=== PATIENT | female | born 1980 | race Caucasian/White ===

== ENCOUNTER 2019-10-05 10:52 | Outpatient (CLI) | payer OTHER, SELFPAY ==
--- NOTE | ~2019-10-05 | XR_ITS ---
EXAMINATION: XR chest 2V DATE: 10/05/2019 11:14 INDICATION: Cough, fever, shortness of breath TECHNIQUE: Frontal and lateral views of the chest are obtained COMPARISON: 02/27/2007 FINDINGS: The lungs are free of acute opacities. There is no pleural effusion or pneumothorax. The ca rdiomediastinal silhouette is normal. The visualized bones and soft tissues are unremarkable. IMPRESSION: 1. No acute cardiopulmonary abnormality. Reviewed, dictated and finalized at location B.
== END 2019-10-05 10:53 | disposition home or self-care (01) ==
PROVIDERS: PCP Internal Medicine; Visit Provider Internal Medicine
DX: R05 Cough (principal)
CPT/HCPCS: 71046

== ENCOUNTER 2019-12-26 16:18 | Emergency (ER) | payer OTHER, SELFPAY ==
--- NOTE | ~2019-12-26 | CT_ITS ---
EXAMINATION: CT abdomen pelvis w con INDICATION: Bilateral abdominal pain, right greater than left TECHNIQUE: Computed tomographic images of the abdomen and pelvis were obtained after the administrati on of 100 cc of Omnipaque 350 intravenous contrast. The dose-length product (DLP) was 1212.43 mGy-cm. Automated exposure control and iterative reconstruction technique were employed. COMPARISON: None available FINDINGS: The lung bases are clear. The heart size is normal. There is focal fatty infiltration of th e liver near the ligamentum teres. The spleen, pancreas, gallbladder, and adrenal glands are normal. The kidneys are unremarkable. No pathologically enlarged abdominal or pelvic lymph nodes are identifi ed. There is no free intraperitoneal gas or evidence of bowel obstruction. There is mild wall thicken ing and inflammatory change involving the ascending and proximal transverse colon. The appendix is no rmal. There are changes of anterior and posterior fusion procedures from L4 through S1. IMPRESSION: 1. Mild colitis involving the ascending and proximal transverse colon. Reviewed, dictated and finalized at location A.
[2019-12-26 16:20] VITALS: BP 111/66; PULSE 102; RESP 20; TEMP 36.7; O2SAT 100
[2019-12-26] MEDS: ONDANSETRON INJ 4 MG/2 ML VIAL IV PUSH (17:05)
[2019-12-26] MEDS: SODIUM CHLORIDE 0.9% IV 1,000 ML 999 ML IV CONT (17:05)
[2019-12-26] MEDS: MORPHINE SULFATE 4 MG/ML INJ IV PUSH (17:05)
[2019-12-26 17:11] LABS: Basophils Percent Auto 0.2 % (0.2-1.2); Eosinophils Absolute Auto 0.1 K/mm3 (0-0.3); Eosinophils Percent Auto 0.5 % (0-4.4); Hematocrit 35.2 % (37.0-47.0); Hemoglobin 10.5 g/dL (12.0-15.0); Immature Granulocyte Absolute 0.03 K/mm3 (0.00-0.031); Immature Granulocyte Percent A 0.3 % (0-0.5); Lymphocytes Absolute Auto 1.26 K/mm3 (0.9-3.2); Lymphocytes Percent Auto 13.6 % (18.3-44.2); Mean Corpuscular HGB Conc 29.8 g/dl (32-36); Mean Corpuscular Hemoglobin 21.7 pg (26-34); Mean Corpuscular Volume 72.9 fl (80-100); Mean Platelet Volume 9.5 fl (7.4-10.4); Monocytes Absolute Auto 0.5 K/mm3 (0.1-0.6); Monocytes Percent Auto 5.2 % (2.6-8.5); Neutrophils Absolute Auto 7.4 K/mm3 (1.3-6.7); Neutrophils Percent Auto 80.2 % (45.5-73.1); Platelet Count Result 293 k/mm3 (150-375); Red Blood Count 4.83 M/mm3 (4.2-5.4); Red Cell Distribution Width 17.5 % (11.5-14.5); White Blood Count 9.3 K/mm3 (4.5-10.0)
[2019-12-26 17:15] LABS: Add Urine Microscopic? YES; Appearance Urine Clear (Clear); Bilirubin Urine Negative (Negative); Blood Urine 2+ (Negative); Color Urine Yellow (Yellow); Glucose Urine UA Negative (Negative); Ketones Urine 1+ mg/dL (Negative); Leukocyte Esterase Ur Negative LEU/UL (Negative); Mucus Urine Heavy /lpf; Nitrate Urine Negative (Negative); Protein Urine 1+ mg/dL (Negative); Specific Grav Ur 1.023 (1.001-1.035); Squamous Epithelial Cell Urine Few /hpf (Few); Urobilinogen Urine Negative mg/dL (<2.0); WBC Urine 0-3 /hpf
[2019-12-26 17:21] LABS: Alanine Aminotransferase 22 U/L (4-35); Albumin Level 4.6 g/dL (3.5-5.1); Alkaline Phosphatase 79 U/L (38-126); Aspartate Amino Transferase 30 U/L (14-36); Bilirubin,Total 0.6 mg/dL (0.2-1.3); Blood Urea Nitrogen 5 mg/dL (7-17); Calcium 8.9 mg/dL (8.4-10.2); Carbon Dioxide 27 mmol/L (22-30); Chloride 97 mmol/L (98-107); Estimated CRCL calculation 89 ml/min; Estimated Glomerular Filt Rate > 60; Glucose 122 mg/dL (65-105); Lipase 49 U/L (23-300); Potassium 3.3 mmol/L (3.4-5.0); Sodium 133 mmol/L (137-145)
[2019-12-26 17:26] LABS: Anisocytosis 2+ (NORMAL); Hypochromasia 1+ (NORMAL); Platelet Estimate Adequate (Adequate)
--- NOTE | 2019-12-26 17:50 | ED.GENADULT ---
HPI - General Adult General Chief complaint: Abdominal Pain Stated complaint: rlq pain, sent from md office Time Seen by Provider: 12/26/19 16:31 History of Present Illness HPI narrative: Patient is a 39-year-old female who presents the ER with abdominal pain. Right-sided ongoing for last 2 days. Associated with diarrhea. Nonbloody. Diffuse abdominal cramping. No fevers or chills or sweats. Mild nausea and occasional vomiting. Reports approximately 6 episodes of diarrhea today. and child had some loose stools last couple days. Related Data Home Medications Medication Instructions Recorded Confirmed amoxicillin-pot clavulanate tablet 12/26/19 fluticasone propion-salmeterol INHALATION 12/26/19 [Advair Diskus] levothyroxine 12/26/19 Allergies Allergy/AdvReac Type Severity Reaction Status Date / Time Quinolones Allergy Severe ANAPHYLACTIC Verified 12/26/19 17:03 SHOCK LEVAQUIN Allergy Severe ANAPHYLACTIC Uncoded 12/26/19 17:03 SHOCK Review of Systems Review of Systems: All systems reviewed & are unremarkable except as noted in HPI and below Constitutional: Constitutional: Denies chills, Denies fever(s) and Denies weakness ENT: Denies nasal congestion and Denies sore throat Gastrointestinal: Gastrointestinal: Reports abdominal pain, Reports diarrhea, Reports nausea and Reports vomiting Genitourinary: Genitourinary: Denies nocturia, Denies dysuria and Denies flank pain PMFSH Past Medical History Medical History (Updated 12/26/19 @ 18:23 by Ko Amezcua MD) Hypothyroidism Surgical History Surgical History (Updated 12/26/19 @ 17:53 by Ko Amezcua MD) Fusion of lumbar spine Family History Family History (Updated 12/26/19 @ 17:54 by Ko Amezcua MD) Unknown Adopted Social History Social History (Updated 12/26/19 @ 17:54 by Ko Amezcua MD) Social History: Non-smoker Exam Narrative: Exam Narrative: GENERAL: Well-appearing, well-nourished, and in no acute distress. HEAD: Normocephalic, atraumatic. ENT: Mucous membranes moist. CHEST: Clear to auscultation. No respiratory distress. HEART: Regular rate and rhythm. Normal peripheral pulses. ABDOMEN: Soft, tender in bilateral lower quadrants right greater than left without guarding, mild epigastric discomfort, nondistended, normal active bowel sounds. EXTREMITIES: Normal range of motion. No edema. NEURO: Alert and oriented x3. PSYCH: Normal mood and affect. Course Course Emergency Course: Patient informed of results. Reports PCP called in some amoxicillin for her. She may fill that we will add on Flagyl. She also received Bentyl and Zofran for home. Vital Signs Vital signs: Vital Signs Temperature 98.1 F 12/26/19 16:20 Pulse Rate 102 H 12/26/19 16:20 Respiratory Rate 20 12/26/19 16:20 Blood Pressure 111/66 12/26/19 16:20 Pulse Oximetry 100 12/26/19 16:20 Temperature 98.1 F 12/26/19 16:20 Pulse Rate 102 H 12/26/19 16:20 Respiratory Rate 20 12/26/19 16:20 Blood Pressure 111/66 12/26/19 16:20 Pulse Oximetry 100 12/26/19 16:20 Medical Decision Making Vital Signs Vital Signs: Vital Signs Temperature 98.1 F 12/26/19 16:20 Pulse Rate 102 H 12/26/19 16:20 Respiratory Rate 20 12/26/19 16:20 Blood Pressure 111/66 12/26/19 16:20 Pulse Oximetry 100 12/26/19 16:20 Temperature 98.1 F 12/26/19 16:20 Pulse Rate 102 H 12/26/19 16:20 Respiratory Rate 20 12/26/19 16:20 Blood Pressure 111/66 12/26/19 16:20 Pulse Oximetry 100 12/26/19 16:20 Lab Data Result diagrams: 12/26/19 17:05 12/26/19 17:05 Labs: Lab Results 12/26/19 12/26/19 12/26/19 Range/Units 17:05 17:05 17:05 WBC 9.3 (4.5-10.0) K/mm3 RBC 4.83 (4.2-5.4) M/mm3 Hgb 10.5 L (12.0-15.0) g/dL Hct 35.2 L (37.0-47.0) % MCV 72.9 L (80-100) fl MCH 21.7 L (26-34) pg MCHC 29.8 L (32-36) g/dl RDW 17
[2019-12-26 18:37] VITALS: BP 113/61; PULSE 95; RESP 19; O2SAT 100
== END 2019-12-26 18:41 | disposition home or self-care (01) ==
PROVIDERS: Emergency Provider Emergency Medicine; PCP Internal Medicine
DX: K52.9 Noninfective gastroenteritis and colitis, unspecified (principal); E03.9 Hypothyroidism, unspecified; Z98.1 Arthrodesis status
CPT/HCPCS: 36415; 74177; 80053; 81001; 81025; 83690; 85025; 96361; 96374; 96375; 99284; J2270; J2405; J7030; Q9967

== ENCOUNTER 2022-05-26 13:32 | Emergency (ER) | payer OTHER, SELFPAY ==
--- NOTE | 2022-05-26 13:36 | ED.URI ---
HPI - URI/Sore Throat General Chief Complaint: Upper Respiratory Infection Stated Complaint: flu like symptoms Time Seen by Provider: 05/26/22 13:36 Source: patient Mode of arrival: ambulatory Limitations: no limitations History of Present Illness HPI Narrative: Ms. Ray is a 41-year-old female patient presenting to the clinic today with complaints of flu-like symptoms x1 day. She reports her symptoms began yesterday. States she is having body aches, chills, cough, congestion, headache, and mild sore throat. MD elicited complaint: fever, cough, sore throat and rhinorrhea Related Data Home Medications Medication Instructions Recorded Confirmed levothyroxine 88 mcg tablet 12/26/19 albuterol sulfate 90 mcg/actuation 90 mcg inhalation DIRECTED 05/26/22 05/26/22 aerosol inhaler methocarbamol 500 mg tablet mg 05/26/22 semaglutide 2 mg/dose (8 mg/3 mL) mg subcut 05/26/22 subcutaneous pen injector (Ozempic) Allergies Allergy/AdvReac Type Severity Reaction Status Date / Time Quinolones Allergy Severe ANAPHYLACTIC Verified 12/26/19 17:03 SHOCK LEVAQUIN Allergy Severe ANAPHYLACTIC Uncoded 12/26/19 17:03 SHOCK Review of Systems Review of Systems: Pertinent positives per HPI. Patient denies any fever, chills, rash, visual changes, dizziness,shortness of breath, chest pain, palpitations, nausea, vomiting, diarrhea, constipation, abdominal pain, or any urinary issues. PMFSH Past Medical History Medical History Hypothyroidism Surgical History Surgical History Fusion of lumbar spine Family History Family History Unknown Adopted Social History Social History Social History: Non-smoker Comments At the time of my signature, I reviewed and agree with the nursing past medical, surgical, social, and family history. There is no relevant family history pertinent to the patient complaint. Exam Narrative: General: Well-developed,obese, in no apparent distress Head: Normocephalic, atraumatic Eyes: Pupils equally round and reactive to light bilaterally, EOM intact, sclera and conjunctive clear, no discharge, lids normal Ears: TMs intact and clear, ear canals clear, no drainage, grossly hearing normal. Nose: Nares patent, clear nasal discharge, no inflammation, no sinus tenderness. Mouth: Oral pharynx without lesions or masses, good dentition, MMM. postnasal drip Neck: Supple, trachea midline, no enlargement of anterior or posterior cervical nodes, no thyroid masses or goiter palpable. Cardio: Regular rate and rhythm, s1 and s2 normal, no murmur appreciated. Resp: Clear to auscultation bilaterally, no rhonchi, rales, wheezing or rubs Course Course Emergency Course: Portions of this record may have been created with voice recognition software. Level of Care: Express Care Visit Vital Signs Vital signs: Vital Signs Temperature 36.5 C 05/26/22 13:49 Pulse Rate 91 05/26/22 13:49 Respiratory Rate 18 05/26/22 13:49 Blood Pressure 118/70 05/26/22 13:49 Pulse Oximetry 99 05/26/22 13:49 Oxygen Delivery Room Air 05/26/22 13:49 Temperature 36.5 C 05/26/22 13:49 Pulse Rate 91 05/26/22 13:49 Respiratory Rate 18 05/26/22 13:49 Blood Pressure 118/70 05/26/22 13:49 Pulse Oximetry 99 05/26/22 13:49 Oxygen Delivery Room Air 05/26/22 13:49 Vital signs reviewed MDM - URI/Sore Throat MDM Narrative Medical decision making narrative: At the time of visit patient is resting comfortably on the exam table. Influenza testing was performed and was negative in the clinic today. I suspect patient has URI/viral syndrome. Supportive measures were discussed with the patient she voiced understanding of discharge instructions
[2022-05-26 13:49] VITALS: BP 118/70; PULSE 91; RESP 18; TEMP 36.5; O2SAT 99
== END 2022-05-26 14:13 | disposition home or self-care (01) ==
PROVIDERS: Emergency Provider Nurse Practitioner Family; PCP Internal Medicine
DX: B34.9 Viral infection, unspecified (principal); J06.9 Acute upper respiratory infection, unspecified; E03.9 Hypothyroidism, unspecified
CPT/HCPCS: 87804; 99213; G0463

== ENCOUNTER 2022-10-22 16:40 | Emergency (ER) | payer OTHER, SELFPAY ==
[2022-10-22 16:51] VITALS: BP 119/74; PULSE 80; RESP 18; TEMP 36.7; O2SAT 100
--- NOTE | 2022-10-22 17:07 | ED.URI ---
HPI - URI/Sore Throat General Chief Complaint: Upper Respiratory Infection Stated Complaint: Sore Throat Time Seen by Provider: 10/22/22 16:51 Source: patient and RN notes reviewed Mode of arrival: ambulatory Limitations: no limitations History of Present Illness HPI Narrative: Patient presents today complaining of left-sided sore throat and fatigue since this morning. Denies any additional symptoms. She currently rates her pain 3/10 and has tried no medication for symptoms prior to arrival. Related Data Home Medications Medication Instructions Recorded Confirmed levothyroxine 88 mcg tablet 88 mcg DIRECTED 12/26/19 10/22/22 albuterol sulfate 90 mcg/actuation 90 mcg inhalation DIRECTED 05/26/22 10/22/22 aerosol inhaler methocarbamol 500 mg tablet 500 mg DIRECTED 05/26/22 10/22/22 semaglutide 2 mg/dose (8 mg/3 mL) 2 mg subcut DIRECTED 05/26/22 10/22/22 subcutaneous pen injector (Ozempic) baclofen 10 mg tablet 10 mg PO DAILY 10/22/22 10/22/22 celecoxib 200 mg capsule 200 mg PO DAILY 10/22/22 10/22/22 Allergies Allergy/AdvReac Type Severity Reaction Status Date / Time Quinolones Allergy Severe ANAPHYLACTIC Verified 10/22/22 16:52 SHOCK bupropion [From Wellbutrin] Allergy Unknown Verified 10/22/22 17:10 LEVAQUIN Allergy Severe ANAPHYLACTIC Uncoded 10/22/22 16:52 SHOCK Review of Systems Review of Systems: CONSTITUTIONAL: Denies body aches, fever, chills, or sweats.+ fatigue EYES: Denies visual changes, redness, or discharge. ENT: Denies rhinorrhea, congestion, or otalgia.+ sore throat CARDIOVASCULAR: Denies chest pain, palpitations, or edema. RESPIRATORY: Denies cough or dyspnea. GASTROINTESTINAL: Denies abdominal pain, nausea, vomiting, or diarrhea. GENITOURINARY: Denies dysuria or hematuria. SKIN: Denies rash, itching, or wounds. MUSCULOSKELETAL: Denies back pain, joint pain, or myalgia. NEUROLOGIC: Denies headache, numbness, tingling, or weakness. PSYCH: Denies depression or anxiety. [facility] Past Medical History Medical History Hypothyroidism Surgical History Surgical History Fusion of lumbar spine Family History Family History Unknown Adopted Social History Social History Social History: Non-smoker Comments At time of signature, I have reviewed and agree with nursing past medical, surgical, social and family history unless otherwise noted. Please see nursing chart for further information. There is no relevant family history pertinent to the presenting complaint Exam Narrative: GENERAL: Well-appearing, well-nourished, and in no acute distress. HEAD: Normocephalic, atraumatic. EYES: EOMI. No redness or drainage. Conjunctivae normal. ENT: Mucous membranes pink and moist. Nares clear. No rhinorrhea. TMs normal bilaterally. Throat normal. Tonsils 2+ bilaterally. Uvula midline. NECK: Normal AROM. Supple. No lymphadenopathy. CHEST: No respiratory distress. Clear to auscultation. HEART: Regular rate and rhythm. No murmur appreciated. EXTREMITIES: Normal range of motion. No edema. SKIN: Warm, dry, no rash. Capillary refill normal. Normal skin turgor. NEURO: No focal deficits. Alert and oriented x3. Gait steady. PSYCH: Normal affect. No signs of depression or anxiety. Course Course Level of Care: Express Care Visit Vital Signs Vital signs: Vital Signs Temperature 98.1 F 10/22/22 16:51 Pulse Rate 80 10/22/22 16:51 Respiratory Rate 18 10/22/22 16:51 Blood Pressure 119/74 10/22/22 16:51 Pulse Oximetry 100 10/22/22 16:51 Oxygen Delivery Room Air 10/22/22 16:51 Temperature 98.1 F 10/22/22 16:51 Pulse Rate 80 10/22/22 16:51 Respiratory Rate 18 10/22/22 16:51 Blood Pressure 119/74
== END 2022-10-22 17:12 | disposition home or self-care (01) ==
PROVIDERS: Emergency Provider Nurse Practitioner; PCP Internal Medicine
DX: J02.9 Acute pharyngitis, unspecified (principal); E03.9 Hypothyroidism, unspecified
CPT/HCPCS: 87081; 87880; 99213; G0463

== ENCOUNTER 2023-01-30 11:18 | Emergency (ER) | payer OTHER, SELFPAY ==
--- NOTE | ~2023-01-30 | US_ITS ---
EXAMINATION: US abdomen limited DATE: 01/30/2023 12:44 INDICATION: Right upper quadrant abdominal pain TECHNIQUE: Multiple grayscale and Doppler ultrasound images of the abdomen were obtained. COMPARISON: None FINDINGS: The pancreatic head and body are normal in appearance. The pancreatic tail is not visualized. Liver has normal echogenicity and contour, with a smooth surface. No liver lesion identified. No intrahepat ic biliary duct dilation suspected. Portal venous flow was seen in the hepatopetal, normal direction and has normal Doppler waveform. The visualized proximal inferior vena cava is normal. The gallbladde r is normal in appearance. There is no cholelithiasis. The common bile duct measures 4-5 mm, which i s normal. Sonographic Zuniga sign was reported as negative by the core paster.Visualized portion of t he right kidney demonstrates normal contour and echogenicity with no hydronephrosis. IMPRESSION: 1. Normal right upper quadrant ultrasound. Reviewed, dictated and finalized at location A.
--- NOTE | ~2023-01-30 | CT_ITS ---
EXAMINATION: CT abdomen pelvis w con DATE: 01/30/2023 13:21 INDICATION: Right upper quadrant abdominal pain, nausea, vomiting and diarrhea. TECHNIQUE: Computed tomography (CT) of the abdomen and pelvis was performed with 100 mL Omnipaque-350 intravenous contrast. Automated exposure control and iterative reconstruction technique were employe d. The dose-length product was 586.74 mGy-cm. COMPARISON: 12/26/2019 FINDINGS: Lung bases are clear. Heart size is normal. No pericardial or pleural effusion. Unchanged focal hepat ic steatosis ligamentum teres. Gallbladder, spleen, pancreas, bilateral adrenal glands and left kidne y are normal. Unchanged small regions of mild cortical scarring at the upper pole of the right kidney likely sequela of prior infection or infarction. There is some urothelial enhancement identified kaykay ng the bilateral ureters which could be seen in the setting of ascending urinary tract infection. Joseph dder is normal. Peripherally enhancing 1.4 cm left ovarian corpus luteum cyst. The right ovary and ut erus are unremarkable. Bowels including the appendix are normal. Combined L4-S1 instrumented anterior and posterior spinal fusions. IMPRESSION: 1. Urothelial enhancement along the bilateral ureters suggestive of ascending urinary tract infection . Correlate with urinalysis. Reviewed, dictated and finalized at location A. IMPRESSION: 1. Urothelial enhancement along the bilateral ureters suggestive of ascending u rinary tract infection. Correlate with urinalysis.
[2023-01-30 11:26] VITALS: BP 110/64; PULSE 79; RESP 17; TEMP 36.7; O2SAT 98
[2023-01-30 12:00] LABS: Basophils Percent Auto 0.5 % (0.2-1.2); Eosinophils Absolute Auto 0.1 K/mm3 (0-0.3); Eosinophils Percent Auto 1.4 % (0-4.4); Hematocrit 42.4 % (37.0-47.0); Immature Granulocyte Absolute 0.01 K/mm3 (0.00-0.031); Immature Granulocyte Percent A 0.2 % (0-0.5); Lymphocytes Absolute Auto 1.33 K/mm3 (0.9-3.2); Lymphocytes Percent Auto 23.7 % (18.3-44.2); Mean Corpuscular Hemoglobin 29.4 pg (26-34); Mean Corpuscular Volume 88.9 fl (80-100); Mean Platelet Volume 9.4 fl (7.4-10.4); Monocytes Absolute Auto 0.3 K/mm3 (0.1-0.6); Monocytes Percent Auto 6.1 % (2.6-8.5); Neutrophils Absolute Auto 3.8 K/mm3 (1.3-6.7); Neutrophils Percent Auto 68.1 % (45.5-73.1); Platelet Count Result 266 k/mm3 (150-375); Red Blood Count 4.77 M/mm3 (4.2-5.4); Red Cell Distribution Width 13.1 % (11.5-14.5); White Blood Count 5.6 K/mm3 (4.5-10.0)
[2023-01-30 12:08] LABS: Appearance Urine Cloudy (Clear); Bacteria Urine None Seen /hpf; Bilirubin Urine Negative (Negative); Blood Urine 1+ (Negative); Color Urine Yellow (Yellow); Glucose Urine UA Negative (Negative); Ketones Urine Negative (Negative); Leukocyte Esterase Ur Negative LEU/UL (Negative); Nitrate Urine Negative (Negative); Non Pathogenic Casts 0-2; Protein Urine Negative (Negative); Specific Grav Ur 1.023 (1.001-1.035); Squamous Epithelial Cell Urine Few /hpf (Few); Urobilinogen Urine 0.2 mg/dL (<2.0); WBC Urine 0-5 /hpf; pH Urine 5.5 (5.0-9.0)
--- NOTE | 2023-01-30 12:09 | ED.ABDPAIN ---
HPI - Abdominal Pain General Chief Complaint: Abdominal Pain Stated Complaint: abdominal pain Time Seen by Provider: 01/30/23 11:34 History of Present Illness HPI narrative: 42-year-old female presented the ED for evaluation of right upper quadrant pain. Patient states over the last few days anytime she eats she has onset of nausea vomiting. Patient reports that yesterday she has had nausea vomiting diarrhea. Yesterday patient had chicken fingers and fries while out shopping and had worsening symptoms. Patient states she has had similar symptoms previously and was diagnosed with colitis. Related Data Home Medications Medication Instructions Recorded Confirmed levothyroxine 88 mcg tablet 88 mcg DIRECTED 12/26/19 10/22/22 albuterol sulfate 90 mcg/actuation 90 mcg inhalation DIRECTED 05/26/22 10/22/22 aerosol inhaler methocarbamol 500 mg tablet 500 mg DIRECTED 05/26/22 10/22/22 semaglutide 2 mg/dose (8 mg/3 mL) 2 mg subcut DIRECTED 05/26/22 10/22/22 subcutaneous pen injector ([employer]) baclofen 10 mg tablet 10 mg PO DAILY 10/22/22 10/22/22 celecoxib 200 mg capsule 200 mg PO DAILY 10/22/22 10/22/22 Allergies Allergy/AdvReac Type Severity Reaction Status Date / Time Quinolones Allergy Severe ANAPHYLACTIC Verified 01/30/23 12:20 SHOCK bupropion [From Wellbutrin] Allergy Unknown Verified 01/30/23 12:20 Sulfa (Sulfonamide Allergy Gastrointestinal Verified 01/30/23 12:20 Antibiotics) Upset LEVAQUIN Allergy Severe ANAPHYLACTIC Uncoded 01/30/23 12:20 SHOCK Review of Systems Review of Systems: All systems reviewed & are unremarkable except as noted in HPI and below PMFSH Past Medical History Medical History Hypothyroidism Surgical History Surgical History Fusion of lumbar spine Family History Family History Unknown Adopted Social History Social History Social History: Non-smoker Exam Narrative: APPEARANCE: Well appearing, no pain, no distress, well-nourished. HEAD: normocephalic, atraumatic. EYES: PERRLA/EOMI, conjunctivae clear. NOSE: Normal no drainage NECK: Supple. No adenopathy, no masses. RESPIRATORY: Airway patent, respirations nonlabored. Clear to auscultation bilaterally, no rales, rhonchi, wheezing. CARDIOVASCULAR: Regular rate and rhythm without murmurs rubs or gallops. ABDOMINAL: Soft, right upper quadrant tenderness to palpation with some mild right lower quadrant tenderness MUSCULOSKELETAL: Moves all extremities. Strength/ROM intact, No edema, No calf tenderness. NEURO: Alert. Cranial nerves II through XII intact. Grossly intact SKIN: Warm, dry. Normal Color Course Course Emergency Course: 42-year-old female presented the emergency room for evaluation of nausea vomiting diarrhea and right upper quadrant pain. Patient does have reproducible right upper quadrant tenderness to palpation. Patient was afebrile with no leukocytosis. Ultrasound was ordered of the right upper quadrant to evaluate for acute cholecystitis. Patient declined any medications for pain control but was willing to have medications for nausea. IV Zofran and IV saline was ordered. Patient was updated on the plan for evaluation. All questions and concerns were addressed. Ultrasound showed no evidence of cholecystitis or cholelithiasis. CT scan was ordered to evaluate for colitis and CT scan showed no etiology to explain the patient's symptoms. Patient was updated on results of the work-up and plan for treatment at home. Patient was encouraged of close follow-up with her primary care physician. Patient was encouraged to follow a clear liquid diet advance to bland diet and have a low-fat diet. I still suspect gallbladder as the underlying etiology is a pat
[2023-01-30 12:15] VITALS: BP 107/68; PULSE 73; RESP 13; O2SAT 99
[2023-01-30 12:15] LABS: Add Urine Microscopic? YES
[2023-01-30 12:16] LABS: Lactic Acid Reflex 0.7 mmol/L (0.7-2.0)
[2023-01-30 12:17] LABS: Alanine Aminotransferase 28 U/L (6-35); Albumin Level 4.3 g/dL (3.5-5.1); Alkaline Phosphatase 70 U/L (38-126); Anion Gap 7 mmol/L (8-16); Aspartate Amino Transferase 28 U/L (14-36); Bilirubin,Total 0.5 mg/dL (0.2-1.3); Blood Urea Nitrogen 8 mg/dL (7-17); Carbon Dioxide 24 mmol/L (22-30); Chloride 104 mmol/L (98-107); Estimated CRCL calculation 101 ml/min; Estimated Glomerular Filt Rate > 60; Glucose 116 mg/dL (65-110); Lipase 141 U/L (23-300); Potassium 3.4 mmol/L (3.4-5.0); Sodium 135 mmol/L (137-145)
[2023-01-30] MEDS: ONDANSETRON INJ 4 MG/2 ML VIAL IV PUSH (12:19)
[2023-01-30] MEDS: SODIUM CHLORIDE 0.9% IV 1,000 ML 999 ML IV CONT (12:19)
[2023-01-30 12:52] VITALS: BP 105/65; PULSE 79; RESP 14; O2SAT 100
[2023-01-30 13:50] VITALS: BP 112/71; PULSE 82; RESP 19; O2SAT 100
== END 2023-01-30 14:16 | disposition home or self-care (01) ==
PROVIDERS: Emergency Provider Emergency Medicine; PCP Internal Medicine
DX: R10.11 Right upper quadrant pain (principal); R11.2 Nausea with vomiting, unspecified; E03.9 Hypothyroidism, unspecified; Z98.1 Arthrodesis status; R93.41 Abnormal radiologic findings on diagnostic imaging of renal pelvis, ureter, or bladder
CPT/HCPCS: 36415; 74177; 76705; 80053; 81001; 81025; 83605; 83690; 85025; 96361; 96374; 99284; J2405; J7030; Q9967